=== PATIENT | female | born 1965 | race Caucasian/White ===

== ENCOUNTER 2019-05-11 10:56 | Inpatient (IN) ==
--- NOTE | 2019-04-25 11:34 | PAT Medication Instructions ---
Medication Instructions Date of Service April 25, 2019 Home Medications acetaminophen 650 mg tablet,extended release 650 mg PO UD PRN meloxicam [Mobic] 15 mg PO UD PRN ASK your surgeon for instructions meloxicam [Mobic] 15 mg PO UD PRN Take morning of surgery With a small sip of water, OTHERWISE NOTHING TO EAT OR DRINK AFTER MIDNIGHT: acetaminophen 650 mg tablet,extended release 650 mg PO UD PRN (okay to take up to 4 hours prior to surgery if needed) Take evening before surgery acetaminophen 650 mg tablet,extended release 650 mg PO UD PRN (if needed) Other Notes If you have any questions please call us at [phone] or [phone] or [phone] or [phone]
--- NOTE | 2019-04-26 10:13 | Anesthesiology Consultation ---
Date of Service April 26, 2019 Assessment & Plan (1) Encounter for pre-operative examination: Chart Review Chart Review: Acceptable Risk for Surgery and Patient seen in Pre Admission Testing Teaching & Discussion Instructed NPO after midnight before surgery, except medications with 15 cc of water. Medication instructions provided according to the [facility] guidelines. History Surgery Operation Date: 05/11/19 13:05 Proposed Procedures p L5-S1 Transforaminal Lumbar Interbody Fusion, Spinal Cord Monitoring - Jaylon Whipple DO Height/Weight Height: 6 ft Weight: 108.4 kg Allergies Allergy/AdvReac Type Severity Reaction Status Date / Time adhesive AdvReac Mild Tape - Verified 04/19/19 12:12 skin burning Medications Home Medications Medication Instructions Recorded Confirmed Last Taken acetaminophen 650 mg 650 mg PO UD PRN 02/07/19 04/19/19 Unknown tablet,extended release meloxicam [Mobic] 15 mg PO UD PRN 02/26/19 04/19/19 Unknown Past Medical History Medical History (Updated 04/26/19 @ 15:00 by Jorge Torres) Chronic back pain SPINAL STENOSIS HERNIATED DISC History of headache following lumbar puncture After hysterectomy, required blood patch. MVP (mitral valve prolapse) " TEENAGER," NO INTERVENTION, NO ISSUES, NO MURMUR APPRECIATED ON EXAM AT [facility]. Exercise / Class Metabolic Activity II 4-5 Yardwork/Stairs/Walk up hill Past Family History Family History (Updated 04/19/19 @ 12:17 by Arvind Carson RN) Other Family history of diabetes mellitus in brother Past Surgical History Surgical History Family history of reaction to anesthesia MOM & SISTER - N/V H/O: hysterectomy History of cholecystectomy History of knee replacement LEFT TKA AND THEN REVISION Hx of colonoscopy Hx of esophagogastroduodenoscopy Hx of knee surgery MANIPULATION IN OR X2 PONV (postoperative nausea and vomiting) Past Anesthesia History No Family Hx of Anesthesia Complications (PONV sister and mother) Spinal headache after hyster, required blood patch, but no BRADLEY with TKA or TKA revision. History of PONV History of PONV (not with more recent surgeries) and Hx of Motion Sickness Social History Smoking Status: Never smoker Do You Dip or Chew Tobacco: No Hx Alcohol Use: Yes alcohol intake frequency: holidays/special occasions only Hx Substance Use: No substance use type: does not use Review of Systems Pt denies any recent chest pain, shortness of breath, palpitations, cough, fever or URI. Physical Exam Vital Signs BP: 133/83 P: 70bpm SPO2: 96% RA T: 97.9 F R: 12 ENMT Mouth: + dental restorations (one lower L molar crowned); no chipped teeth and no loose teeth Thyromental Distance: > or= 3.5 Finger Breadths (4) Mallampati Class: II Neck normal visual inspection; neck extension not limited Respiratory normal respiratory effort Auscultation: lungs clear to auscultation bilaterally Cardiovascular Rate/Rhythm: regular rate and regular rhythm Heart Sounds: no murmur Extremities: no edema Testing Laboratory Results 04/26/19 10:27 04/26/19 10:27 PT 10.3 Seconds (9.0-12.0) 04/26/19 10: INR 1.0 (0.9-1.1) 04/26/19 10: APTT 26.0 Seconds (21.0-31.0) 04/26/19 10:27 Urine Color Yellow 04/26/19 10:27 Urine Appearance Clear (Clear) 04/26/19 10:27 Urine pH 5.5 (4.5-7.5) 04/26/19 10:27 Ur Specific [place] 1.019 (1.000-1.030) 04/26/19 10:27 Urine Protein Negative (Negative) 04/26/19 10:27 Urine Glucose (UA) Negative (Negative) 04/26/19 10:27 Urine Ketones Negative (Negative) 04/26/19 10:27 Urine Nitrite Negative (Negative) 04/26/19 10:27 Ur Leukocyte Esterase Negative (Negative) 04/26/19 10:27 Blood Type B Positive 04/26/19 10:27 Antibody Screen NEGATIVE 04/26/19 10:27 Electrocardiogram Date: 03/08/19 Sinus rhythm at 65 bpm with occasional PVCs. Otherwise normal EKG. Compared with EKG of 04/21/2012, PVCs are now present. Chest X-Ray Date: 04/26/19 Findings: + NAD
--- NOTE | 2019-04-26 10:53 | XRay Report ---
XR chest Pre-admission PA/Lat CLINICAL HISTORY: pat preoperative evaluation COMPARISON STUDY: No previous studies for comparison. FINDINGS: The bones soft tissues and hemidiaphragms are normal. The cardiomediastinal silhouette is n ormal. The lungs are clear. The pulmonary vasculature is normal. IMPRESSION: Negative chest. ACT 112: Negative or not required by law. The above report was generated using voice recognition software. It may contain grammatical, syntax or spelling errors. Electronically signed by: Jama Gunn M.D. 04/26/2019 10:52 AM
[2019-04-26 12:16] LABS: Basophils # (auto) 0.05 K/uL (0-0.2); Basophils % (auto) 0.7 %; Eosinophils # (auto) 0.09 K/uL (0-0.5); Eosinophils % (auto) 1.2 %; Hemoglobin 15.6 g/dL (12.0-16.0); Immature Granulocytes # (auto) 0.01 K/uL (0.00-0.02); Immature Granulocytes % (auto) 0.1 %; Lymphocytes # (auto) 1.86 K/uL (1.2-3.4); Lymphocytes % (auto) 25.8 %; Mean Corpuscular Hemoglobin 32.5 pg (25-34); Mean Corpuscular Hgb Conc 35.5 g/dL (32-36); Mean Corpuscular Volume 91.7 fL (80-100); Monocytes # (auto) 0.65 K/uL (0.11-0.59); Neutrophils # (auto) 4.55 K/uL (1.4-6.5); Neutrophils % (auto) 63.2 %; Platelet Count 217 K/uL (130-400); RDW Coefficient of Variation 12.5 % (11.5-14.5); RDW Standard Deviation 42.2 fL (36.4-46.3); White Blood Count 7.21 K/uL (4.8-10.8)
[2019-04-26 12:19] LABS: Appearance Urine Clear (Clear); Bilirubin Urine Negative (Negative); Blood Urine Negative (Negative); Color Urine Yellow; Glucose Urine UA Negative (Negative); Ketones Urine Negative (Negative); Leukocyte Esterase Urine Negative (Negative); Nitrite Urine Negative (Negative); Protein Urine Negative (Negative); Specific Gravity Urine 1.019 (1.000-1.030); Urobilinogen Urine Negative (Negative); pH Urine 5.5 (4.5-7.5)
[2019-04-26 12:30] LABS: Prothrombin Time 10.3 Seconds (9.0-12.0)
[2019-04-26 13:02] LABS: BUN Creatinine Ratio 17.4 (10-20); Calcium 9.3 mg/dl (8.5-10.1); Creatinine Clr Calc Pharmacy 97.4 ml/min; Est GFR (African American) 82.4; Est GFR (Non-African American) 71.1
[~2019-05-11 10:56] MED LIST: ACETAMINOPHEN 500 MG TAB PO SCH; CEFAZOLIN 2000MG 2,000 MG/15 ML SYR IV SCH; CeleBREX 200 MG CAP PO SCH; GABAPENTIN 900 MG DOSE PO SCH; LR 15ML/HR IV SCH
[2019-05-11] MEDS ORDERED: ePHEDrine sulfate 50 MG/ML AMP ONE (11:43)
[2019-05-11] MEDS ORDERED: fentaNYL citrate 100 MCG/2 ML VIAL ONE ×2 (11:43→15:17)
[2019-05-11] MEDS ORDERED: MIDAZOLAM HCL 1 MG/ML 2ML VIAL ONE (11:44)
[2019-05-11] MEDS ORDERED: FLUMAZENIL 0.1 MG/1 ML 10 ML VIAL IV PRN (12:14)
[2019-05-11] MEDS ORDERED: LABETALOL HCL IV 5 MG/ML 20ML IV PRN (12:14)
[2019-05-11] MEDS ORDERED: PROMETHAZINE HCL 12.5 MG in SODIUM CHLORIDE 0.9% 50 ML IV PRN ×2 (12:14→16:45)
[2019-05-11] MEDS ORDERED: ePHEDrine sulfate 50 MG/ML AMP IV PRN (12:14)
[2019-05-11] MEDS ORDERED: ONDANSETRON INJ 2 MG/ML 2 ML VIAL IV PRN ×2 (12:14→16:45)
[2019-05-11] MEDS ORDERED: ATROPINE SULFATE 0.1 MG/ML 10ML SYR IV PRN (12:14)
[2019-05-11] MEDS ORDERED: NALOXONE HCL 0.4 MG/1 ML VIAL/CARP IV PRN ×2 (12:14→16:45)
--- NOTE | 2019-05-11 12:46 | History & Physical Bridge Note ---
Date of Service May 11, 2019 History & Physical Bridge Note I have examined the patient, reviewed the History & Physical and in the interval since the performance of the History & Physical I have noted the following changes of clinical significance: no changes noted
--- NOTE | 2019-05-11 12:47 | History & Physical Report ---
Date of Service May 11, 2019 Assessment & Plan (1) Neurogenic claudication due to lumbar spinal stenosis: L5-S1 transforaminal lumbar interbody fusion Present on Admission?: Yes History of Present Illness Chief Complaint: Back and leg pain Primary Care Provider: Alycia Roldan This is a 53-year-old female who presents with chronic persistent back and leg pain. After failing extensive course of nonoperative care is here for surgical invention. Allergies Allergy/AdvReac Type Severity Reaction Status Date / Time adhesive AdvReac Mild Tape - Verified 05/11/19 11:22 skin burning Home Medications Home Medications Medication Instructions Recorded Confirmed Type acetaminophen 650 mg 650 mg PO UD PRN 02/07/19 05/11/19 History tablet,extended release meloxicam [Mobic] 15 mg PO UD PRN 02/26/19 05/11/19 History Past Med/Surg History Family History (Updated 04/19/19 @ 12:17 by Arvind Carson RN) Other Family history of diabetes mellitus in brother Social History Preferred Language: Burkinan Communication Ability: Effective Valance Cutter Required: No Beliefs That Will Affect Care: None Current Living Situation: Spouse Other Information That Helps Us Care for You: No Feels Safe at Home: Yes Smoking Status: Never smoker Do You Dip or Chew Tobacco: No ; Second Hand Exposure: No ; Hx Alcohol Use: Yes Hx Substance Use: No Physical Exam Physical Exam: Patient is alert and oriented neurologically intact. Results & Data Vital Signs (Past 12 Hours) Vital Signs Temp Pulse Resp BP Pulse Ox 05/11/19 11:36 36.9 C 85 18 168/99 H 98
[2019-05-11] MEDS ORDERED: BUPIVACAINE/EPINEPHRINE 0.5% MPF 1:200,000 10 ML VIAL ONE (13:14)
[2019-05-11] MEDS ORDERED: BACITRACIN INJ 50,000 UNIT VIAL ONE (13:14)
[2019-05-11] MEDS ORDERED: NEOSTIGMINE METHYLSULFATE 1 MG/ML 10ML VIAL ONE (13:52)
[2019-05-11] MEDS ORDERED: PROPOFOL IV EMULSION 10 MG/ML 20 ML VIAL IV ONE (13:52)
[2019-05-11] MEDS ORDERED: LARYING-O-JET KIT (LTA) ONE (13:52)
[2019-05-11] MEDS ORDERED: DEXAMETHASONE SOD INJ 4 MG/ML VIAL ONE (13:52)
[2019-05-11] MEDS ORDERED: LIDOCAINE HCL 2% 2 ML VIAL/AMP(20MG/ML) INFIL ONE (13:52)
[2019-05-11] MEDS ORDERED: ONDANSETRON INJ 2 MG/ML 2 ML VIAL ONE (13:52)
[2019-05-11] MEDS ORDERED: ROCURONIUM BROMIDE 10 MG/ML 5 ML VIAL ONE (13:52)
[2019-05-11] MEDS ORDERED: GLYCOPYRROLATE 0.2 MG/ML VIAL ONE (13:52)
[2019-05-11] MEDS ORDERED: FLOSEAL HEMOSTATIC MATRIX 10ML TOP ONE (14:13)
[2019-05-11] MEDS ORDERED: ePHEDrine sulfate 50 MG/ML SYR ONE (14:13)
--- NOTE | 2019-05-11 14:58 | Operative Report ---
Post Operative Report Pre & Post Diagnosis Operation Date: 05/11/19 13:05 Pre-Op Diagnosis: Lumbar Spinal Stenosis with neurogenic claudication Post-Op Diagnosis: Same I identified the patient and participated in the time-out.: Yes Procedure Operation Date: 05/11/19 13:05 Actual Procedures #1 lumbar decompression with bilateral medial facetectomies foraminotomies L5- S1. #2 posterior spinal fusion L5-S1. #3 placed posterior instrumentation L5- S1. #4 interbody fusion L5-S1. #5 placement of titanium cage 9 x 22 mm at L5- S1. #6 placement locally harvested morselized autograft in the posterior lateral gutters. #7 placement infuse collagen sponge bone mass graft in the posterior lateral gutters and ostial amp and interbody space. Surgeon Jaylon Whipple, Academic Affairs Assistant Kaveh Underwood Estimated Blood Loss 100 Findings Consistent with Post-Op Diagnosis Specimens None Indications This is a 53-year-old female who presents with above-mentioned diagnosis after failing extensive course of nonoperative care is here for the above-mentioned procedure. Description of Procedure Patient was met with identified informed consent obtained. Patient was then taken to the operative suite underwent intubation placed in the prone position the Richy table on top of the Jaguar frame. All bony prominences well-padded eyes inspected to ensure no external pressure placed upon up at this point the lumbar spine is prepped and draped in normal sterile fashion. Sharp dissection with the assistance of Bovie cautery was performed down to and exposing the lamina and transverse processes of L5 and the sacral ala bilaterally. From a caudal to cephalad fashion complete laminectomy of L5 was performed including bilateral medial facetectomies and foraminotomies addressing spinal stenosis. Pedicle screws were then placed in L5 and S1 levels bilaterally with assistance of fluoroscopy and appropriately sized mauricio placed. By way of a transforaminal approach on the right a complete discectomy was performed endplates curetted to subcortical bleeding bone and a 9 x 22 mm titanium cage filled with osteo-bone graft tapped in position. The rods were then locked in final position bilaterally. The transverse processes of L5 and the sacral ala burred to subcortical bleeding bone. Infuse collagen sponge master graft local autograft was placed in the posterior lateral gutters. 15 round [place] drain inserted. The incision was then closed with 1 Vicryl in the fascia 2-0 Vicryl subcutaneously and 4 Monocryl for final skin closure. Steri-Strip sterile dressings placed. Patient will continue PACU stable addition. Please note Kaveh Underwood was present at the entire procedure involved the patient positioning complex portions of the surgery and final skin closure. Lastly spinal cord monitoring was utilized that the procedure no changes noted. I attest to the content of the Intraoperative Record and any orders documented therein. Any exceptions are noted below.
--- NOTE | 2019-05-11 15:22 | Fluoroscopy Report ---
FL lumbar spine 2-3V HISTORY: 53 years-old Female L5-S1 TRANSFORAMINAL LUMBAR INTERBODY COMPARISON: Lumbar spine radiographs 02/07/2019 TECHNIQUE: 3 spot fluoroscopic images of the lumbar spine were obtained utilizing 20.6 seconds fluoro scopy time FINDINGS: Prior laminectomy with discectomy, posterior interbody mauricio and screw fusion at L5-S1. Satisfactory al ignment with multilevel spondylitic spurring and facet arthrosis. IMPRESSION: Fluoroscopic assistance as above. Please see operative report for further details. ACT 112: Negative or not required by law. The above report was generated using voice recognition software. It may contain grammatical, syntax o r spelling errors. Electronically signed by: Prasanna Young M.D. 05/11/2019 3:20 PM
[2019-05-11] MEDS: fentaNYL citrate 100 MCG/2 ML VIAL IV PRN ×3 (15:30→15:40)
[2019-05-11] MEDS: HYDROmorphone INJ 1 MG/ML SYRINGE IV PRN ×8 (15:40→16:15)
[2019-05-11] MEDS ORDERED: KETOROLAC 30 MG/ML VIAL ONE (15:49)
[2019-05-11] MEDS ORDERED: ACETAMINOPHEN 1,000 MG/100 ML VIAL IV STA (15:51)
[2019-05-11] MEDS ORDERED: ACETAMINOPHEN 1000 MG/100 ML IV IV ONE (15:52)
--- NOTE | 2019-05-11 16:18 | Anesthesiology Progress Note ---
Date of Service May 11, 2019 Anesthesia Post Procedure Vital Signs Vital Signs: Temp Pulse Pulse Resp BP BP Pulse Ox 05/11/19 16:10 75 16 138/64 93 05/11/19 16:00 78 16 159/60 H 98 05/11/19 15:50 75 16 162/75 H 99 05/11/19 15:40 73 16 138/96 100 05/11/19 15:30 74 18 135/84 100 05/11/19 15:22 36.4 C L 78 18 159/90 H 100 05/11/19 11:36 36.9 C 85 18 168/99 H 98 Pain Intensity Bilateral Back: Pain Intensity: 5 Transfer of Care Handoff Completed per policy Notes Mental Status: alert / awake / arousable Patient Amnestic to Procedure: Yes Nausea / Vomiting: adequately controlled Pain: adequately controlled Airway Patency, RR, SpO2: stable & adequate BP & HR: stable & adequate Hydration State: stable & adequate Anesthetic Complications: no major complications apparent
[2019-05-11] MEDS ORDERED: FAMOTIDINE 20 MG TAB PO PRN (16:45)
[2019-05-11] MEDS ORDERED: ALUMINUM/MAGNESIUM SUSP 30 ML UDC PO PRN (16:45)
[2019-05-11] MEDS ORDERED: LACTATED RINGER'S 1,000 ML IV SCH (16:45)
[2019-05-11] MEDS ORDERED: bisacodyL 10 MG SUPP PR PRN (16:45)
[2019-05-11] MEDS ORDERED: METOCLOPRAMIDE HCL INJ 5 MG/ML 2 ML VIAL IV PRN (16:45)
[2019-05-11] MEDS ORDERED: ACETAMINOPHEN 1,000 MG/100 ML VIAL IV PRN (16:45)
[2019-05-11] MEDS ORDERED: HYDROmorphone INJ 0.5 MG/0.5 ML SYR IV PRN (16:45)
[2019-05-11] MEDS ORDERED: DO NOT ADMINISTER FLU VACCINE PRN (16:45)
[2019-05-11] MEDS ORDERED: MAGNESIUM HYDROXIDE SUSP 30 ML UDC PO PRN (16:45)
[2019-05-11] MEDS ORDERED: LORazepam 0.5 MG TAB PO PRN (16:45)
[2019-05-11] MEDS ORDERED: HYDROmorphone INJ 1 MG/ML SYRINGE IV PRN (16:45)
[2019-05-11] MEDS ORDERED: TRAMADOL HCL 50 MG TABLET PO PRN (16:45)
[2019-05-11] MEDS ORDERED: ONDANSETRON 4 MG OD TAB PO PRN (16:45)
[2019-05-11] MEDS ORDERED: OXYCODONE HCL IR 5 MG TAB (IMMEDIATE RELEASE) PO PRN (16:45)
[2019-05-11] MEDS ORDERED: DO NOT ADMINISTER PNEUMOCOCCAL VACCINE PRN (16:45)
[2019-05-11] MEDS ORDERED: SOD PHOSPHATE/SOD BIPHOSPHATE ENEMA 132 ML BTL PR PRN (16:45)
[2019-05-11] MEDS ORDERED: LORazepam 0.5 MG/1 ML VIAL IV PRN (16:45)
[2019-05-11] MEDS: KETOROLAC 30 MG/ML VIAL IV SCH (18:05)
[2019-05-11] MEDS: DOCUSATE SODIUM/SENNA 50/8.6MG TAB PO SCH (21:14)
[2019-05-11] MEDS: CEFAZOLIN 2000MG 2,000 MG/15 ML SYR IV SCH (21:14)
[2019-05-12] MEDS: KETOROLAC 30 MG/ML VIAL IV SCH ×3 (00:04→11:54)
[2019-05-12] MEDS: CEFAZOLIN 2000MG 2,000 MG/15 ML SYR IV SCH (05:40)
[2019-05-12] MEDS: POLYETHYLENE (MIRALAX) 17 GM PACK PO SCH ×4 (05:40→23:39)
[2019-05-12 06:56] LABS: Basophils # (auto) 0.01 K/uL (0-0.2); Basophils % (auto) 0.1 %; Eosinophils # (auto) 0.01 K/uL (0-0.5); Eosinophils % (auto) 0.1 %; Hematocrit (blood only) 36.9 % (37-47); Hemoglobin 12.7 g/dL (12.0-16.0); Immature Granulocytes # (auto) 0.02 K/uL (0.00-0.02); Immature Granulocytes % (auto) 0.1 %; Lymphocytes # (auto) 1.24 K/uL (1.2-3.4); Mean Corpuscular Hemoglobin 31.5 pg (25-34); Mean Corpuscular Hgb Conc 34.4 g/dL (32-36); Mean Corpuscular Volume 91.6 fL (80-100); Mean Platelet Volume 10.1 fL (7.4-10.4); Monocytes # (auto) 0.68 K/uL (0.11-0.59); Monocytes % (auto) 4.9 %; Neutrophils % (auto) 85.8 %; Platelet Count 194 K/uL (130-400); RDW Coefficient of Variation 12.1 % (11.5-14.5); RDW Standard Deviation 40.9 fL (36.4-46.3); Red Blood Count 4.03 M/uL (4.2-5.4); White Blood Count 13.76 K/uL (4.8-10.8)
[2019-05-12 07:26] LABS: BUN Creatinine Ratio 14.5 (10-20); Calcium 8.8 mg/dl (8.5-10.1); Creatinine Clr Calc Pharmacy 84.8 ml/min; Est GFR (African American) 69.4; Est GFR (Non-African American) 59.9; Potassium 3.9 mmol/L (3.5-5.1)
[2019-05-12] MEDS: DOCUSATE SODIUM/SENNA 50/8.6MG TAB PO SCH (17:46)
[2019-05-12] MEDS: ACETAMINOPHEN 500 MG TAB PO PRN (21:45)
[2019-05-13] MEDS: POLYETHYLENE (MIRALAX) 17 GM PACK PO SCH ×2 (06:00→12:22)
[2019-05-13] MEDS: ACETAMINOPHEN 500 MG TAB PO PRN ×3 (06:37→22:38)
--- NOTE | 2019-05-13 11:35 | Orthopedic Progress Note ---
Date of Service May 13, 2019 Assessment & Plan (1) Neurogenic claudication due to lumbar spinal stenosis: At this time concerned she is developed a spontaneous CSF leak. We will DC her drain today. Of asked her to maintain bedrest for the next 24 hours. I will reassess her tomorrow. We may initiate more activity tomorrow afternoon pending her response. Present on Admission?: Yes Admission and Anticipated Discharge Date Admission Date: May 11, 2019 Subjective Unfortunately this morning as she was walking the nichole she began experiencing headache. Again she has no significant back or leg pain. Physical Exam Physical Exam: On exam she has excellent strength testing. Results & Data ([facility]) Vital Signs (Past 12 Hours) Vital Signs Temp Pulse Resp BP BP Pulse Ox 05/13/19 07:36 36.6 C 66 16 127/78 96 05/12/19 23:40 36.7 C 68 15 126/79 95
[2019-05-13] MEDS: DOCUSATE SODIUM/SENNA 50/8.6MG TAB PO SCH (18:09)
[2019-05-13 23:44] VITALS: O2SAT 95
--- NOTE | 2019-05-14 07:45 | Anesthesiology Progress Note ---
Date of Service May 14, 2019 Anesthesia Post Procedure Vital Signs Vital Signs: Temp Pulse Resp BP Pulse Ox 05/13/19 23:35 36.7 C 72 16 137/89 95 05/13/19 15:17 36.8 C 77 20 145/84 H 97 Pain Intensity Bilateral Back: Pain Intensity: 0 Head: Pain Intensity: 0 Notes Mental Status: alert / awake / arousable and participated in evaluation Patient Amnestic to Procedure: Yes Nausea / Vomiting: adequately controlled Pain: adequately controlled Airway Patency, RR, SpO2: stable & adequate BP & HR: stable & adequate Hydration State: stable & adequate Anesthetic Complications: no major complications apparent
[2019-05-14 07:53] VITALS: PULSE 80; TEMP 98.8
[2019-05-14] MEDS: ACETAMINOPHEN 500 MG TAB PO PRN (09:13)
[2019-05-14 10:03] VITALS: BP 149/82
--- NOTE | 2019-05-14 12:09 | Discharge Summary ---
Date of Service May 14, 2019 Admission HPI Per Admitting Provider This is a 53-year-old female who presents with chronic persistent back and leg pain. After failing extensive course of nonoperative care is here for surgical invention. Principal Diagnosis Lumbar spinal stenosis with neurogenic claudication Discharge Data Allergies Allergy/AdvReac Type Severity Reaction Status Date / Time adhesive AdvReac Mild Tape - Verified 05/11/19 11:22 skin burning Consultations 05/11/19 16:45 Consult Case Management - Discharge Planning Routine Procedures Performed Operation Date: 05/11/19 13:05 Actual Procedures p L5-S1 Decompression Fusion, Transforaminal Lumbar Interbody Fusion L5-S1, Bone Morphogenetic Protein, Spinal Cord Monitoring - Jaylon Whipple, Ordered Studies 05/11/19 13:05 FL fluoroscopy <1hr Routine [place] lumbar spine 2-3V Routine Hospital Course (1) Neurogenic claudication due to lumbar spinal stenosis: Patient went lumbar decompression fusion troll as well as taken to orthopedic for postoperative postop day 1 she was up and ambulating pain well controlled. Postop day 2 she began experiencing some headaches we did discontinue the drain and had her undergo bed rest. The third day she had complete resolution of symptoms. She is ambulating well. Abdominal wound is working well. Excellent strength testing. Subsequently discharged home. Discharge orders instructions on the chart for further review. Total Time Total Time Spent Total Time Spent (In Minutes): 20 minutes Discharge Plan Discharge Items Patient Disposition: Home - Self-Care Reason For Visit: LUMBAR SPINAL STENOSIS WO NEUROGENIC CLAUDICATION Discharge Diagnosis: Lumbar spinal stenosis with neurogenic claudication Activity: As commented below Non-emergency contact: Primary Care Provider Call non-emergency contact if: you have any medication questions Follow-up/Referrals: Alycia Roldan [Primary Care Provider] - Diet: Regular Addtl Attending Provider Instructions: ACTIVITY RECOMMENDATIONS: SELF CARE INSTRUCTIONS AFTER THORACIC/LUMBAR FUSIONS 1. You may walk to your tolerance. It is good exercise for your legs and back. Expect some back and intermittent leg aches and pains. 2. You may perform "counter-top" level activities (make a sandwich, nestor with a project, etc.). 3. No bending or lifting of more than 10 pounds or back twisting of any nature (roll like a log when turning in bed). 4. You may ride in a car for 20-30 minutes at a time. No driving until after your first visit with your doctor. 5. Frequent changes of position and restricting sitting to 30 minutes at a time will help limit the amount of back spasms and stiffness you may experience. 6. You may discontinue the use of ambulatory aids (cane, crutches, etc.) once your strength and confidence allow. 7. You may product safety and standards engineer the shower and let water strike your incision when you arrive home at least once daily. Do not take a tub bath, sit in a hot tub or go into a swimming pool until after your first recheck in the office. SPECIAL CARE INSTRUCTIONS: VERY IMPORTANT TO READ AND REVIEW A. Your surgical incision has been closed with a cosmetic suture under the skin that will dissolve in about 6 weeks. In 14 days, you can use a pair of clean scissors and cut the suture that is left outside of the skin at the ends of your incision. 1. The small skin tapes can be removed 7 days after surgery if they have not fallen off by that point. 2. You may keep the wound open to air as much as possible to promote healing after post-op day number 5 unless told otherwise by your doctor. 3. If you think the wound looks like it is becoming infected (redness or worsening drainage) and/or you are experiencing fever, chill or worsening back pain and muscle spasms, contact the office so that we may evaluate you as soon as possible. B. Complications are uncommon, but please contact us if you have any signs or symptoms of: 1. wound infection (fever higher than 102.5 degrees F, redness, separation of wound, drainage, or increasing pain from the incision) 2. blood clots in legs (pain, swelling, redness and warmth in legs) 3. urinary tract infection (fever higher than 102.5 degrees F, burning upon urination or increased frequency of urination) 4. nerve problems (inability to walk on your toes or heels, numbness, loss of bowel or bladder control) 5. any other symptoms that concern you C. Please call the office at if you have any concerns or questions about your operation or recovery. D. No smoking! Smoking drastically decreases the chance of a solid fusion. E. Do not take any anti-inflammatory medications (Indocin, Advil, Motrin, Aspirin, Naprosyn, etc.) as these may inhibit the chance of a solid fusion. Tylenol is okay to take for pain. MANAGING PAIN AFTER SPINAL SURGERY 1. Narcotic medication is intended for short-term use and will be provided for surgical pain. Surgical pain usually lasts for a period of 4-6 weeks. Narcotic medication includes Percocet, Vicodin, Darvocet, Tylenol #3 or Lortab. 2. Longer-term pain is more appropriately treated with non-narcotic medication such as Tylenol ES. 3. Muscle spasm is not appropriately treated with narcotics. Muscle relaxers such as Soma, Flexeril or Skelaxin can be used along with Tylenol ES. 4. Remember that we all live with some "aches and pains". This is not unusual or uncommon after an injury or as we get older. a. Back pain is expected and may include muscle spasms for 4 to 6 weeks after surgery. The pain should gradually improve. If the pain worsens for no apparent reason, please contact the office. b. Intermittent leg pain may also be experienced and should not be concerned about unless it worsens for no apparent reason. If so, please contact the office. 5. We will provide appropriate medication within the normal guidelines of their prescribed use. We will also be very cautious and aware of potential abuse and extended duration of patients' medication needs. a. Pain medications are for your comfort and to assist with sleep and rest so that the tissue can heal. They are not provided in order to return to normal activity and should not be used through the day. To do so or worsening pain at night can result from ongoing tissue damage and development of tolerance to the prescribed medicine. 6. Please allow 2-3 days to process refills. Prescriptions will not be mailed but must be picked up at the office. FOLLOW UP VISIT: Keep your scheduled follow-up appointment. Any questions, please call the office at . Pending Studies at Discharge: No Stand-Alone Forms: My [facility] Poptent, Opioid Pain Management, Smoking Cessation Medications and DC Order Prescriptions: New tramadol 50 mg tablet 50 mg PO Q6H PRN (Reason: pain, moderate) Qty: 30 RF: 0 oxycodone 5 mg tablet 5 mg PO Q6H PRN (Reason: pain, severe) Qty: 30 RF: 0 Continued acetaminophen [Tylenol Arthritis Pain] 650 mg tablet extended release 650 mg PO UD PRN (Reason: Pain) RF: 0 Discontinued meloxicam [Mobic] 7.5 mg Tablet 15 mg PO UD PRN (Reason: Pain) RF: 0 Discharge Orders: Discharge Order (Routine); Ordered 05/14/19 Ordered By: Jaylon Whipple Admission Data Admit Date/Time: 05/11/19 15:33 Attending Provider: Jyalon Whipple Admit Provider: Jaylon Whipple Primary Care Provider: Alycia Roldan Other Interventions: Discharge Summary Assessment (RN) Last Done: 05/14/19 09:52 DC Date/Time DO NOT enter until pt leaves facility: 05/14/19 11:37
== END 2019-05-14 11:37 | disposition home or self-care (01) | DRG 455 ==
LOC: ASU 10:56 → 3E 15:33

== ENCOUNTER 2022-01-19 08:19 | Inpatient (IN) ==
--- NOTE | 2021-12-29 10:19 | PAT Medication Instructions ---
Medication Instructions Date of Service December 29, 2021 Home Medications acetaminophen 650 mg tablet,extended release (Tylenol Arthritis Pain) 650 mg PO UD PRN Pain diphenhydramine 25 mg-acetaminophen 500 mg tablet (Tylenol PM Extra Strength) 1 tab PO HS PRN Sleep hydrochlorothiazide 25 mg tablet 25 mg PO QAM trazodone 50 mg tablet 100 mg PO HS DO NOT take the morning of surgery hydrochlorothiazide 25 mg tablet 25 mg PO QAM Take morning of surgery With a small sip of water, OTHERWISE NOTHING TO EAT OR DRINK AFTER MIDNIGHT: acetaminophen 650 mg tablet,extended release (Tylenol Arthritis Pain) 650 mg PO UD PRN Pain (if needed) Take evening before surgery acetaminophen 650 mg tablet,extended release (Tylenol Arthritis Pain) 650 mg PO UD PRN Pain (if needed) diphenhydramine 25 mg-acetaminophen 500 mg tablet (Tylenol PM Extra Strength) 1 tab PO HS PRN Sleep (if needed) trazodone 50 mg tablet 100 mg PO HS Other Notes If you have any questions please call us at [phone] or [phone] or [phone] or [phone]
--- NOTE | 2021-12-31 10:59 | Anesthesiology Consultation ---
Date of Service December 31, 2021 Assessment & Plan (1) Encounter for pre-operative examination: Chart Review Chart Review: Acceptable Risk for Surgery and Patient seen in Pre Admission Testing Teaching & Discussion Pre-Anesthesia Teaching/Discussion Notes: Instructed NPO after midnight before surgery, except medications with 15 cc of water. Medication instructions provided according to the [facility] guidelines. History Surgery Operation Date: 01/19/22 07:45 Proposed Procedures p L4-L5 Decompression and Fusion, L5-S1 Hardware Removal - Jaylon Whipple DO Height/Weight Height: 6 ft Weight: 97.522 kg Allergies Allergy/AdvReac Type Severity Reaction Status Date / Time adhesive AdvReac Mild Tape - Verified 12/25/21 11:23 skin burning Medications Home Medications Medication Instructions Recorded Confirmed Last Taken acetaminophen 650 mg 650 mg PO UD PRN Pain 02/07/19 12/25/21 10/23/19 tablet,extended release (Tylenol Arthritis Pain) diphenhydramine 25 1 tab PO HS PRN Sleep 12/25/21 12/25/21 Unknown mg-acetaminophen 500 mg tablet (Tylenol PM Extra Strength) hydrochlorothiazide 25 mg tablet 25 mg PO QAM 12/25/21 12/25/21 Unknown trazodone 50 mg tablet 100 mg PO HS 12/25/21 12/25/21 Unknown Past Medical History Medical History (Updated 12/31/21 @ 11:12 by Tamar Kiser PA-C) Chronic back pain DDD (degenerative disc disease) GERD (gastroesophageal reflux disease) controlled, stable per pt History of anesthesia reaction slow to wake, PONV not requiring scop patch History of headache following lumbar puncture After hysterectomy, required blood patch. HTN (hypertension) controlled, stable per pt MVP (mitral valve prolapse) " TEENAGER," NO INTERVENTION, NO ISSUES, NO MURMUR APPRECIATED ON EXAM AT [facility]. Spinal stenosis Patient denies h/o stroke, seizures, heart attack, heart failure, DM, blood clots or blood transfusions. Exercise / Class Metabolic Activity II 4-5 Yardwork/Stairs/Walk up hill (denies CP or SOB with 1 FOS) Past Family History Family History Other Family history of diabetes mellitus in brother Past Surgical History Surgical History (Updated 12/31/21 @ 15:05 by aTmar Kiser PA-C) Family history of reaction to anesthesia MOM & SISTER - N/V H/O: hysterectomy History of cholecystectomy History of knee replacement LEFT TKA AND THEN REVISION History of spinal fusion 05/11/2019 [facility]: Grade 1 view, MAC 3, ETT 7.5. Hx of colonoscopy Hx of esophagogastroduodenoscopy Hx of knee surgery MANIPULATION IN OR X2 PONV (postoperative nausea and vomiting) denies needing scop patch S/P transposition of nerve left ulnar Past Anesthesia History Other (slow to wake, blood patch after neuraxial anesthesia without issues with subsequent TKA and revision; mother and sister with PONV) History of PONV History of PONV (denies needing scop patch) and Hx of Motion Sickness Social History Smoking Status: Never smoker Do You Dip or Chew Tobacco: No Hx Alcohol Use: Yes alcohol intake frequency: holidays/special occasions only Hx Substance Use: No substance use type: does not use Review of Systems Patient denies chest pain, shortness of breath, dyspnea on exertion, snoring, witnessed apneas, fever, chills, cough, wheezing, or palpitations. Physical Exam Vital Signs Vitals BP 133/90 P 82 TEMP 98.3 SP02 96% on RA RESP 18 Physical Full cervical extension range of motion without pain TMD 3.5 finger breadths Mallampati Score 3 Dentition: intact, denies chipped or loose teeth, caps/crowns, implants or bridges Lungs: normal respiratory effort. Clear throughout to auscultation, no adventitious breath sounds Cardiac: regular rate and rhythm, no murmurs noted Carotid arteries: negative bruit bilat Lab Results Anesthesia Preop Results Results Anesthesia Widget: WBC 5.38 K/ul (4.8-10.8) 12/31/21 Hgb 15.6 g/dl (12.0-16.0) 12/31/21 Hct 42.4 % (34.1-44.9) 12/31/21 Plt 213 K/uL (130-400) 12/31/21 Na 138 mmol/L (136-145) 12/31/21 K 3.9 mmol/L (3.5-5.1) 12/31/21 Cl 102 mmol/L (98-107) 12/31/21 CO2 30 mmol/L (21-32) 12/31/21 BUN 20 mg/dl (6-23) 12/31/21 Creat 0.97 mg/dl (0.6-1.2) 12/31/21 Glucose Level 128 mg/dl (70-99(Fasting)) H 12/31/21 PT 10.9 Seconds (9.0-12.0) 12/31/21 PTT 25.8 Seconds (21.0-31.0) 12/31/21 INR 1.0 (0.9-1.1) 12/31/21 Urine Color Yellow 12/31/21 Urine Appearance Clear (Clear) 12/31/21 Urine pH 6.0 (4.5-7.5) 12/31/21 Urine Specific [place] 1.020 (1.000-1.030) 12/31/21 Urine Protein Negative (Negative) 12/31/21 Urine Glucose (UA) Negative (Negative) 12/31/21 Urine Ketones Negative (Negative) 12/31/21 Urine Blood Negative (Negative) 12/31/21 Urine Nitrite Negative (Negative) 12/31/21 Urine Bilirubin Negative (Negative) 12/31/21 Urine Urobilinogen Negative (Negative) 12/31/21 Urine Leukocyte Esterase Negative (Negative) 12/31/21 Blood Type B Positive 12/31/21 Antibody Screen NEGATIVE 12/31/21 Testing Electrocardiogram Date: 12/31/21 Sinus rhythm with occasional PVCs, rate 69 bpm Chest X-Ray Date: 12/31/21 The lungs are clear. Cardiac silhouette is normal in size. No pleural effusions. No pneumothorax. Prior cholecystectomy. Moderate degenerative changes within the thoracic spine. There are low lung volumes. IMPRESSION: No acute process. Other Testing Neck CTA 10/23/19 No evidence of hemodynamically significant carotid or vertebral artery stenosis. No evidence of dissection. COVID-19 Risk Screen Screening Information COVID-19 Screen Date: 12/31/21 Exposure 21 Days Family/Household +COVID Last 21 Days: No Exposure 10 Days Any COVID Exposure Last 10 Days: No Symptoms Last 10 Days Experienced COVID Sx Last 10 Days: No + COVID 0-90 Days COVID + in Last 0-90 Days: No
[~2022-01-19 08:19] MED LIST changes: -CEFAZOLIN 2000MG 2,000 MG/15 ML SYR IV SCH; +GABAPENTIN 600 MG DOSE PO SCH; -GABAPENTIN 900 MG DOSE PO SCH; +ceFAZolin 2000MG 2,000 MG/15 ML SYR IV SCH
[2022-01-19] MEDS ORDERED: LIDOCAINE 2% 20 MG/ML 5 ML SYR IV ONE (08:30)
[2022-01-19] MEDS ORDERED: fentaNYL citrate 100 MCG/2 ML VIAL ONE (08:30)
[2022-01-19] MEDS ORDERED: MIDAZOLAM HCL 1 MG/ML 2ML VIAL ONE (08:30)
[2022-01-19] MEDS ORDERED: ROCURONIUM BROMIDE 10 MG/ML 5 ML VIAL IV ONE (08:30)
[2022-01-19] MEDS ORDERED: PROPOFOL IV EMULSION 10 MG/ML 20 ML VIAL IV ONE (08:30)
--- NOTE | 2022-01-19 09:07 | History & Physical Bridge Note ---
Date of Service January 19, 2022 History & Physical Bridge Note I have examined the patient, reviewed the History & Physical and in the interval since the performance of the History & Physical I have noted the following changes of clinical significance: no changes noted
--- NOTE | 2022-01-19 09:08 | History & Physical Report ---
Date of Service January 19, 2022 Assessment & Plan (1) Lumbar spinal stenosis: Plan: L4-5 decompression and fusion, L5-S1 hardware removal History of Present Illness Chief Complaint: Back and leg pain Primary Care Provider: Sandi Carty DO This is a 56-year-old female who presents with chronic persistent back and leg pain. Failing course of nonoperative care she is here for surgical invention. Allergies Allergy/AdvReac Type Severity Reaction Status Date / Time adhesive AdvReac Mild Tape - Verified 01/19/22 08:29 skin burning Home Medications Medication Instructions Recorded Confirmed Type acetaminophen 650 mg 650 mg PO UD PRN Pain 02/07/19 01/19/22 History tablet,extended release (Tylenol Arthritis Pain) diphenhydramine 25 1 tab PO HS PRN Sleep 12/25/21 01/19/22 History mg-acetaminophen 500 mg tablet (Tylenol PM Extra Strength) hydrochlorothiazide 25 mg tablet 25 mg PO QAM 12/25/21 01/19/22 History trazodone 50 mg tablet 100 mg PO HS 12/25/21 01/19/22 History Past Med/Surg History Medical History Chronic back pain DDD (degenerative disc disease) GERD (gastroesophageal reflux disease) controlled, stable per pt History of anesthesia reaction slow to wake, PONV not requiring scop patch History of headache following lumbar puncture After hysterectomy, required blood patch. HTN (hypertension) controlled, stable per pt MVP (mitral valve prolapse) " TEENAGER," NO INTERVENTION, NO ISSUES, NO MURMUR APPRECIATED ON EXAM AT PAT. Obesity Spinal stenosis Surgical History Family history of reaction to anesthesia MOM & SISTER - N/V H/O: hysterectomy History of cholecystectomy History of knee replacement LEFT TKA AND THEN REVISION History of spinal fusion 05/11/2019 [facility]: Grade 1 view, MAC 3, ETT 7.5. Hx of colonoscopy Hx of esophagogastroduodenoscopy Hx of knee surgery MANIPULATION IN OR X2 PONV (postoperative nausea and vomiting) denies needing scop patch S/P transposition of nerve left ulnar Family History Other Family history of diabetes mellitus in brother Social History Smoking Status: Never smoker Second Hand Exposure: No; Do You Dip or Chew Tobacco: No; Hx Alcohol Use: Yes Hx Substance Use: No Preferred Language: Khmer Communication Ability: Effective Shirt Finisher Required: No Beliefs That Will Affect Care: None Current Living Situation: Spouse Feels Safe at Home: Yes Safety Concerns: Feels Safe At This Time Assistive Devices: Glasses Physical Exam Physical Exam: Patient is alert and oriented Heart regular rhythm Lungs clear Results & Data Results & Data ([facility]) Vital Signs (Past 12 Hours) Vital Signs Temp Pulse Resp BP Pulse Ox O2 Del Method 01/19/22 08:40 36.6 C 80 18 165/100 H 98 Room Air
[2022-01-19] MEDS ORDERED: ceFAZolin 330 MG/ML 1 GM VIAL ONE (09:13)
[2022-01-19] MEDS ORDERED: BUPIVACAINE/EPINEPHRINE 0.25% 1:200,000 30 ML VIAL ONE (09:13)
[2022-01-19] MEDS ORDERED: SCOPOLAMINE 1 MG TDSY TD ONE (09:20)
[2022-01-19] MEDS ORDERED: FAMOTIDINE/PF 20 MG/2 ML VIAL IV ONE (09:23)
[2022-01-19] MEDS ORDERED: ePHEDrine sulfate 50 MG/ML AMP IV PRN (09:25)
[2022-01-19] MEDS ORDERED: ATROPINE SULFATE 0.1 MG/ML 10ML SYR IV PRN (09:25)
[2022-01-19] MEDS ORDERED: ONDANSETRON INJ 2 MG/ML 2 ML VIAL IV PRN ×2 (09:25→13:10)
[2022-01-19] MEDS ORDERED: HYDROmorphone INJ 1 MG/ML SYRINGE IV PRN ×2 (09:25→13:10)
[2022-01-19] MEDS ORDERED: KETAMINE 50 MG/5 ML SYRINGE ONE (09:54)
[2022-01-19] MEDS ORDERED: NEOSTIGMINE METHYLSULFATE 1 MG/ML 10ML VIAL ONE (10:15)
[2022-01-19] MEDS ORDERED: ONDANSETRON INJ 2 MG/ML 2 ML VIAL ONE (10:15)
[2022-01-19] MEDS ORDERED: GLYCOPYRROLATE 0.2 MG/ML VIAL ONE (10:15)
[2022-01-19] MEDS ORDERED: HYDROmorphone INJ 2 MG/ML SYR/VIAL ONE (11:23)
--- NOTE | 2022-01-19 11:30 | Operative Report ---
Post Operative Report Pre & Post Diagnosis Operation Date: 01/19/22 09:55 Pre-Op Diagnosis: Spondylolisthesis, Lumbar Region Spinal stenosis with neurogenic claudication Post-Op Diagnosis: Same I identified the patient and participated in the time-out.: Yes Procedure Operation Date: 01/19/22 09:55 Actual Procedures #1 removal of posterior instrumentation L5-S1. #2 exploration of fusion L5-S1. #3 lumbar decompression bilateral medial facetectomies and foraminotomies L3-L4 L4-L5. #4 posterior spinal fusion L4-5. #5 placement posterior instrumentation L4-5 per #6 interbody fusion L4-5. #7 placement of Spira 15 x 26 mm cage at L4- L5. #8 placement locally harvested morselized autograft in the posterior gutters. #9 placement of I factor model V toss interbody space and posterior gutters. Surgeon Jaylon Whipple, Regeneration Operator Teresita Irving Estimated Blood Loss 250 Findings See Below Patient is 6 feet tall weighing over 107 kg with a BMI in excess of 32. Patient's body habitus did contribute to significant technical difficulty required deepest retractors and longer instruments noted to perform her procedure. This at least 50% increased operative time. Specimens None Indications This is a 56-year-old female known to me the presents with above-mentioned diagnosis after failing course of nonoperative care is here for the above- mentioned procedure. Description of Procedure Patient was met with identified informed consent obtained. Patient was then taken to the operative suite underwent intubation placed in the prone position the Richy table top of the Jaguar frame. All bony prominences well-padded eyes inspected to ensure no external pressure placed upon the. This point the lumbar spine was prepped and draped in normal sterile fashion. Sharp dissection with the assistance of Bovie cautery was performed down to and exposing the lamina and transverse processes of L4 and instrumentation at L5-S1 bilaterally. Then proceeded move the hardware bilaterally explore the fusion mass noted to be mature and intact at L5-S1. Then performed a complete laminectomy L4 partial laminectomy of L3 including bilateral medial facetectomies and foraminotomies addressing severe spinal stenosis. Pedicle screws then placed at L4-5 bilate rally with assistance of fluoroscopy and appropriately sized mauricio placed. By way of entrance foraminal approach on the right a complete discectomy of L for L5 was performed endplates curetted to subcortical any bone and a 15 x 26 mm spiral cage with I factor tapped in position. The rods were then compressed locked in final position bilaterally. The transverse processes of L4-5 burred to subcorti gustavo bleeding bone. I factor model V toss and locally harvested morselized autograft was placed in the posterior gutters. 15 round [place] drain inserted. The incision was then closed with 1 Vicryl in the fascia 2-0 Vicryl subcutaneously and 4 Monocryl for final skin closure. Steri-Strip sterile dressings placed. Patient waken taken to PACU in stable condition. Please note spinal cord monitoring was utilized at the procedure no changes noted and lastly Teresita Irving was present at the entire procedure and while the patient positioning complex portions of the surgery and final skin closure. I attest to the content of the Intraoperative Record and any orders documented therein. Any exceptions are noted below.
[2022-01-19] MEDS: fentaNYL citrate 100 MCG/2 ML VIAL IV PRN ×2 (12:04→12:10)
--- NOTE | 2022-01-19 13:08 | Anesthesiology Progress Note ---
Date of Service January 19, 2022 Anesthesia Post Procedure Vital Signs Vital Signs: Temp Pulse Pulse Resp BP Pulse Ox O2 Del Method 01/19/22 12:35 36.4 C L 61 12 126/73 98 Room Air 01/19/22 12:25 83 12 135/98 100 Room Air 01/19/22 12:15 73 12 157/93 H 100 Oxymask 01/19/22 12:05 80 13 159/98 H 98 Oxymask 01/19/22 11:55 65 12 132/89 100 Oxymask 01/19/22 11:45 36.0 C L 87 16 147/96 H 99 Oxymask 01/19/22 08:40 36.6 C 80 18 165/100 H 98 Room Air O2 Flow Rate 01/19/22 12:35 01/19/22 12:25 01/19/22 12:15 3 01/19/22 12:05 5 01/19/22 11:55 9 01/19/22 11:45 9 01/19/22 08:40 Pain Intensity Back: Pain Intensity: 4 Transfer of Care Handoff Completed per policy Notes Mental Status: alert / awake / arousable and participated in evaluation Patient Amnestic to Procedure: Yes Nausea / Vomiting: adequately controlled Pain: adequately controlled Airway Patency, RR, SpO2: stable & adequate BP & HR: stable & adequate Hydration State: stable & adequate Anesthetic Complications: no major complications apparent
[2022-01-19] MEDS ORDERED: hydrOXYzine HCl 25 MG TAB PO PRN (13:10)
[2022-01-19] MEDS ORDERED: LORazepam 0.5 MG in SYRINGE 0 ML IV PRN (13:10)
[2022-01-19] MEDS ORDERED: PROMETHAZINE HCL 12.5 MG in SODIUM CHLORIDE 0.9% 50 ML IV PRN (13:10)
[2022-01-19] MEDS ORDERED: diphenhydrAMINE Capsule 25 MG CAP PO PRN (13:10)
[2022-01-19] MEDS ORDERED: HYDROmorphone INJ 0.5 MG/0.5 ML SYR IV PRN (13:10)
[2022-01-19] MEDS ORDERED: ALUMINUM/MAGNESIUM SUSP 30 ML UDC PO PRN (13:10)
[2022-01-19] MEDS ORDERED: METOCLOPRAMIDE HCL INJ 5 MG/ML 2 ML VIAL IV PRN (13:10)
[2022-01-19] MEDS ORDERED: NALOXONE HCL 0.4 MG/1 ML VIAL/CARP IV PRN (13:10)
[2022-01-19] MEDS ORDERED: oxyCODONE HCL IR 5 MG TAB (IMMEDIATE RELEASE) PO PRN (13:10)
[2022-01-19] MEDS ORDERED: FAMOTIDINE 20 MG TAB PO PRN (13:10)
[2022-01-19] MEDS ORDERED: MAGNESIUM HYDROXIDE SUSP 30 ML UDC PO PRN (13:10)
[2022-01-19] MEDS ORDERED: bisacodyL 10 MG SUPP PR PRN (13:10)
[2022-01-19] MEDS ORDERED: ONDANSETRON 4 MG OD TAB PO PRN (13:10)
[2022-01-19] MEDS ORDERED: ACETAMINOPHEN 1,000 MG/100 ML VIAL IV PRN (13:10)
[2022-01-19] MEDS ORDERED: SOD PHOSPHATE/SOD BIPHOSPHATE ENEMA 132 ML BTL PR PRN (13:10)
[2022-01-19] MEDS ORDERED: LORazepam 0.5 MG TAB PO PRN (13:10)
[2022-01-19] MEDS ORDERED: ACETAMINOPHEN 500 MG TAB PO PRN (13:10)
[2022-01-19] MEDS: LACTATED RINGER'S 1,000 ML IV SCH ×2 (13:14→19:32)
--- NOTE | 2022-01-19 13:15 | Fluoroscopy Report ---
FL lumbar spine 2-3V CLINICAL HISTORY: L4-L5 DECOMP AND FUSION, L5-S1 HARDWARE REMOVAL TECHNIQUE: 3 views were obtained with the C-arm in the OR with the above procedure. Total fluoroscopy time was 12 seconds. Comparison: Comparison is made to lumbar spine radiograph 04/10/2018 FINDINGS/IMPRESSION: Intraoperative images were obtained of L4-L5 decompression and fusion and hardwa re replacement. Please correlate with intraoperative fluoroscopy and operative report. ACT 112: Negative or not required by law. Electronically signed by: Deep Oakley M.D. 01/19/2022 1:14 PM
[2022-01-19] MEDS: ceFAZolin 2000MG 2,000 MG/15 ML SYR IV SCH (17:17)
[2022-01-19] MEDS: DOCUSATE SODIUM/SENNA 50/8.6MG TAB PO SCH (20:43)
[2022-01-19] MEDS: traZODone HCL 100 MG TAB PO SCH (20:43)
[2022-01-20] MEDS: ceFAZolin 2000MG 2,000 MG/15 ML SYR IV SCH (02:01)
[2022-01-20] MEDS: LACTATED RINGER'S 1,000 ML IV SCH (02:01)
[2022-01-20] MEDS: POLYETHYLENE (MIRALAX) 17 GM PACK PO SCH ×4 (05:56→23:06)
[2022-01-20] MEDS: traMADol HCL 50 MG TABLET PO PRN ×2 (06:06→21:44)
[2022-01-20 07:24] LABS: Basophils # (auto) 0.05 K/uL (0-0.2); Basophils % (auto) 0.5 %; Eosinophils # (auto) 0.04 K/uL (0-0.50); Eosinophils % (auto) 0.4 %; Hematocrit (blood only) 35.2 % (34.1-44.9); Hemoglobin 12.7 g/dl (12.0-16.0); Immature Granulocytes # (auto) 0.04 K/uL (0.00-0.02); Immature Granulocytes % (auto) 0.4 %; Lymphocytes # (auto) 2.15 K/uL (1.2-3.4); Lymphocytes % (auto) 19.5 %; Mean Corpuscular Hemoglobin 33.1 pg (25.0-34.0); Mean Corpuscular Hgb Conc 36.1 g/dL (32.0-36.0); Mean Corpuscular Volume 91.7 fL (80.0-100.0); Mean Platelet Volume 9.5 fL (9.4-12.3); Monocytes # (auto) 0.71 K/uL (0.24-0.82); Monocytes % (auto) 6.4 %; Neutrophils # (auto) 8.02 K/uL (1.4-6.5); Neutrophils % (auto) 72.8 %; Platelet Count 188 K/uL (130-400); RDW Coefficient of Variation 11.8 % (11.5-14.5); RDW Standard Deviation 39.5 fL (36.4-46.3); Red Blood Count 3.84 M/uL (3.93-5.22); White Blood Count 11.01 K/ul (4.8-10.8)
[2022-01-20 07:43] LABS: Calcium 8.9 mg/dl (8.5-10.1); Creatinine Clr Calc Pharmacy 86.3 ml/min; Est GFR (African American) 72.9 ml/min; Est GFR (Non-African American) 62.9 ml/min; Potassium 3.5 mmol/L (3.5-5.1)
[2022-01-20] MEDS: hydroCHLOROthiazide 25 MG TAB PO SCH (08:31)
[2022-01-20] MEDS: dexAMETHasone 6 MG in SYRINGE 0 ML IV SCH (08:31)
--- NOTE | 2022-01-20 09:01 | Orthopedic Progress Note ---
Date of Service January 20, 2022 Assessment & Plan (1) Lumbar spinal stenosis: Plan: Osiris is postop day 1 status post hard removal L5-S1, TLIF L4-5. She is doing great. We will start physical therapy today. Maintain DALLAS drain. DVT prophylaxis is in the form of teds and SCDs. Continue with pain control. Anticipate discharge home within the next 24 to 48 hours. Admission and Anticipated Discharge Date Admission Date: January 19, 2022 Subjective States he is postop day 1 status post hard removal L5-S1, TLIF L4-5. She is doing well. Right leg pain has resolved that she had preoperatively. H&H are 12.7 and 35.2 respectively. DALLAS drain output last shift was 80 cc. Otherwise she had an uneventful evening. Review of Systems Review of Systems: All systems reviewed & are unremarkable except as noted in HPI & below Physical Exam Physical Exam: She sitting in a chair in no acute distress Alert and oriented x3 Lumbar dressing is clean dry intact with functioning D[place] drain Calf soft nontender bilaterally Results & Data ([facility]) Vital Signs (Past 12 Hours) Vital Signs Temp Pulse Resp BP Pulse Ox O2 Del Method 01/20/22 07:33 37.0 C 76 17 122/80 94 Room Air 01/20/22 04:00 36.5 C 68 16 124/69 97 Room Air 01/20/22 00:00 36.9 C 72 16 109/69 97 Room Air
[2022-01-20] MEDS: DOCUSATE SODIUM/SENNA 50/8.6MG TAB PO SCH (21:41)
[2022-01-20] MEDS: traZODone HCL 100 MG TAB PO SCH (21:42)
[2022-01-21] MEDS: POLYETHYLENE (MIRALAX) 17 GM PACK PO SCH (05:46)
--- NOTE | 2022-01-21 08:21 | Discharge Summary ---
Date of Service January 21, 2022 Admission HPI Per Admitting Provider This is a 56-year-old female who presents with chronic persistent back and leg pain. Failing course of nonoperative care she is here for surgical invention. Principal Diagnosis Lumbar spinal stenosis with neurogenic claudication with spondylolisthesis L4-5 Discharge Data Allergies Allergy/AdvReac Type Severity Reaction Status Date / Time adhesive AdvReac Mild Tape - Verified 01/19/22 08:29 skin burning Procedures Performed Operation Date: 01/19/22 09:55 Actual Procedures p L4-L5 Decompression and Fusion, L5-S1 Hardware Removal(Not Applicable) - Jaylon Whipple DO Ordered Studies 01/19/22 07:00 [place] lumbar spine 2-3V Routine Hospital Course (1) Neurogenic claudication due to lumbar spinal stenosis: Patient underwent lumbar decompression fusion tolerated this well was taken to orthopedic for postoperative postop and when she was up and ambulating pr ogressed to postop day #2. Pain well controlled. DALLAS drain decreasing probably. EXTR strength testing. Socially discharged home per discharge orders and instructions found in the chart for further review. Total Time Total Time Spent Total Time Spent (In Minutes): 20 minutes Discharge Plan Discharge Items Patient Disposition: Home - Self-Care Reason For Visit: Spondylolisthesis, Lumbar Region Discharge Diagnosis: Lumbar spinal stenosis with neurogenic claudication Activity: As commented below Non-emergency contact: Primary Care Provider Call non-emergency contact if: you have any medication questions Follow-up/Referrals: Sandi Carty DO [Primary Care Provider] - Diet: Regular Addtl Attending Provider Instructions: ACTIVITY RECOMMENDATIONS: SELF CARE INSTRUCTIONS AFTER THORACIC/LUMBAR FUSIONS 1. You may walk to your tolerance. It is good exercise for your legs and back. Expect some back and intermittent leg aches and pains. 2. You may perform "counter-top" level activities (make a sandwich, nestor with a project, etc.). 3. No bending or lifting of more than 10 pounds or back twisting of any nature (roll like a log when turning in bed). 4. You may ride in a car for 20-30 minutes at a time. No driving until after your first visit with your doctor. 5. Frequent changes of position and restricting sitting to 30 minutes at a time will help limit the amount of back spasms and stiffness you may experience. 6. You may discontinue the use of ambulatory aids (cane, crutches, etc.) once your strength and confidence allow. 7. You may marketing producer the shower and let water strike your incision when you arrive home at least once daily. Do not take a tub bath, sit in a hot tub or go into a swimming pool until after your first recheck in the office. SPECIAL CARE INSTRUCTIONS: VERY IMPORTANT TO READ AND REVIEW A. Your surgical incision has been closed with a cosmetic suture under the skin that will dissolve in about 6 weeks. In 14 days, you can use a pair of clean scissors and cut the suture that is left outside of the skin at the ends of your incision. 1. The small skin tapes can be removed 7 days after surgery if they have not fallen off by that point. 2. You may keep the wound open to air as much as possible to promote healing after post-op day number 5 unless told otherwise by your doctor. 3. If you think the wound looks like it is becoming infected (redness or worsening drainage) and/or you are experiencing fever, chill or worsening back pain and muscle spasms, contact the office so that we may evaluate you as soon as possible. B. Complications are uncommon, but please contact us if you have any signs or symptoms of: 1. wound infection (fever higher than 102.5 degrees F, redness, separation of wound, drainage, or increasing pain from the incision) 2. blood clots in legs (pain, swelling, redness and warmth in legs) 3. urinary tract infection (fever higher than 102.5 degrees F, burning upon urination or increased frequency of urination) 4. nerve problems (inability to walk on your toes or heels, numbness, loss of bowel or bladder control) 5. any other symptoms that concern you C. Please call the office at if you have any concerns or questions about your operation or recovery. D. No smoking! Smoking drastically decreases the chance of a solid fusion. E. Do not take any anti-inflammatory medications (Indocin, Advil, Motrin, Aspirin, Naprosyn, etc.) as these may inhibit the chance of a solid fusion. Tylenol is okay to take for pain. MANAGING PAIN AFTER SPINAL SURGERY 1. Narcotic medication is intended for short-term use and will be provided for surgical pain. Surgical pain usually lasts for a period of 4-6 weeks. Narcotic medication includes Percocet, Vicodin, Darvocet, Tylenol #3 or Lortab. 2. Longer-term pain is more appropriately treated with non-narcotic medication such as Tylenol ES. 3. Muscle spasm is not appropriately treated with narcotics. Muscle relaxers such as Soma, Flexeril or Skelaxin can be used along with Tylenol ES. 4. Remember that we all live with some "aches and pains". This is not unusual or uncommon after an injury or as we get older. a. Back pain is expected and may include muscle spasms for 4 to 6 weeks after surgery. The pain should gradually improve. If the pain worsens for no apparent reason, please contact the office. b. Intermittent leg pain may also be experienced and should not be concerned about unless it worsens for no apparent reason. If so, please contact the office. 5. We will provide appropriate medication within the normal guidelines of their prescribed use. We will also be very cautious and aware of potential abuse and extended duration of patients' medication needs. a. Pain medications are for your comfort and to assist with sleep and rest so that the tissue can heal. They are not provided in order to return to normal activity and should not be used through the day. To do so or worsening pain at night can result from ongoing tissue damage and development of tolerance to the prescribed medicine. 6. Please allow 2-3 days to process refills. Prescriptions will not be mailed but must be picked up at the office. FOLLOW UP VISIT: Keep your scheduled follow-up appointment. Any questions, please call the office at . Pending Studies at Discharge: No Stand-Alone Forms: [facility], Smoking Cessation Medications and DC Order Prescriptions: New oxycodone 5 mg tablet 5 mg PO Q6H PRN (Reason: pain, severe) Qty: 30 0RF tramadol 50 mg tablet 50 mg PO Q6H PRN (Reason: pain, moderate) Qty: 30 0RF Continued acetaminophen [Tylenol Arthritis Pain] 650 mg tablet extended release 650 mg PO UD PRN (Reason: Pain) trazodone 50 mg Tablet 100 mg PO HS hydrochlorothiazide 25 mg Tablet 25 mg PO QAM diphenhydramine-acetaminophen [Tylenol PM Extra Strength] 25-500 mg Tablet 1 tab PO HS PRN (Reason: Sleep) Discharge Orders: Discharge Order (Routine); Ordered 01/21/22 Ordered By: Jaylon Whipple Admission Data Admit Date/Time: 01/19/22 11:34 Attending Provider: Jaylon Whipple Admit Provider: Jaylon Whipple Primary Care Provider: Sandi Carty
[2022-01-21] MEDS: dexAMETHasone 6 MG in SYRINGE 0 ML IV SCH (08:30)
[2022-01-21] MEDS: hydroCHLOROthiazide 25 MG TAB PO SCH (08:31)
== END 2022-01-21 13:08 | disposition home or self-care (01) | DRG 455 ==
LOC: ASU 08:19 → 3E 11:34

== ENCOUNTER 2024-07-13 10:42 | Observation (INO) ==
--- NOTE | 2024-06-06 14:12 | PAT Medication Instructions ---
Medication Instructions Date of Service June 06, 2024 Home Medications acetaminophen 650 mg tablet,extended release (Tylenol Arthritis Pain) 650 mg PO UD PRN Pain diphenhydramine 25 mg-acetaminophen 500 mg tablet (Tylenol PM Extra Strength) 1 tab PO HS PRN Sleep hydrochlorothiazide 25 mg tablet 25 mg PO QAM trazodone 50 mg tablet 100 mg PO HS multivitamin 1 tab PO QPM DO NOT take the morning of surgery hydrochlorothiazide 25 mg tablet 25 mg PO QAM Take morning of surgery With a small sip of water, OTHERWISE NOTHING TO EAT OR DRINK AFTER MIDNIGHT: acetaminophen 650 mg tablet,extended release (Tylenol Arthritis Pain) 650 mg PO UD PRN Pain (if needed) Take evening before surgery acetaminophen 650 mg tablet,extended release (Tylenol Arthritis Pain) 650 mg PO UD PRN Pain (if needed) diphenhydramine 25 mg-acetaminophen 500 mg tablet (Tylenol PM Extra Strength) 1 tab PO HS PRN Sleep (if needed) trazodone 50 mg tablet 100 mg PO HS multivitamin 1 tab PO QPM Other Notes If you have any questions please call us at [phone] or [phone] or [phone] or [phone]
--- NOTE | 2024-06-13 11:40 | Anesthesiology Consultation ---
Date of Service June 13, 2024 Assessment & Plan (1) Encounter for pre-operative examination: - awaiting surgeon ordered medical clearance, Dr. Hal Washington, [facility]. - Patient states she is seeing her dentist tomorrow for dental pain. She was instructed to contact surgeon's office with outcome of that visit as it may impact surgery. I also notified surgeon's office. Chart Review Chart Review: Acceptable Risk for Surgery (pending dental visit) and Patient seen in Pre Admission Testing Teaching & Discussion Pre-Anesthesia Teaching/Discussion Notes: Instructed NPO after midnight before surgery, except medications with 15 cc of water. Medication instructions provided according to the PAT guidelines. History Surgery Operation Date: 07/13/24 10:05 Proposed Procedures p L3-L4 Decompression, Exploration Fusion L4-L5, Fusion L3-L5, with Spinal Cord Monitoring - Jaylon Whipple, Height/Weight Height: 6 ft Weight: 99.79 kg Allergies Allergy/AdvReac Type Severity Reaction Status Date / Time adhesive AdvReac Mild Tape - Verified 06/06/24 12:17 skin burning oxycodone [From Percocet] AdvReac Mild Hallucination, Verified 06/08/24 09:31 GI upset Medications Home Medications Medication Instructions Recorded Confirmed Last Taken acetaminophen 650 mg 650 mg PO UD PRN Pain 02/07/19 06/06/24 01/18/22 08:00 tablet,extended release (Tylenol Arthritis Pain) diphenhydramine 25 1 tab PO HS PRN Sleep 12/25/21 06/06/24 01/18/22 21:30 mg-acetaminophen 500 mg tablet (Tylenol PM Extra Strength) hydrochlorothiazide 25 mg tablet 25 mg PO QAM 12/25/21 06/06/24 01/18/22 08:00 trazodone 50 mg tablet 100 mg PO HS 12/25/21 06/06/24 01/18/22 21:30 multivitamin 1 tab PO QPM 06/06/24 06/06/24 Unknown Past Medical History Medical History GERD (gastroesophageal reflux disease) controlled, stable per pt History of anesthesia reaction Slow to wake PONV "not requiring scop patch" HTN (hypertension) controlled, stable per pt DDD (degenerative disc disease) Spinal stenosis Chronic back pain MVP (mitral valve prolapse) "As teenager" No murmur appreciated on PAT exam 06/13/24 Patient denies h/o stroke, seizures, heart attack, heart failure, DM, blood clots/DVTs or blood transfusions. Exercise / Class Metabolic Activity II 4-5 Yardwork/Stairs/Walk up hill (denies chest discomfort or shortness of breath with one flight of stairs) Past Family History Family History Sister Family history of reaction to anesthesia n/v Mother Family history of reaction to anesthesia n/v Other Family history of diabetes mellitus in brother Past Surgical History Surgical History History of headache following lumbar puncture After hysterectomy, required blood patch History of hand surgery Right pinky finger reattached S/P transposition of nerve R/L ulnar History of spinal fusion 01/2022 + 05/2019 Family history of reaction to anesthesia Mother/sister - PONV Hx of colonoscopy Hx of esophagogastroduodenoscopy PONV (postoperative nausea and vomiting) Denies needing scop patch Hx of knee surgery left, manipulation in OR x2 History of cholecystectomy H/O: hysterectomy History of knee replacement Left TKA > revision History of PONV History of PONV and Hx of Motion Sickness Social History Smoking Status: Never smoker Do You Dip or Chew Tobacco: No Hx Alcohol Use: Yes alcohol intake frequency: holidays/special occasions only Hx Substance Use: No substance use type: does not use Review of Systems Patient denies chest pain, shortness of breath, dyspnea on exertion, snoring, witnessed apneas, reflux, fever, chills, cough, wheezing, or palpitations. Physical Exam Vital Signs Vitals BP 127/85 P 92 TEMP 98.4 SP02 98% on RA RESP 18 Physical Patient resting comfortably in chair in no acute distress, alert and oriented, responding appropriately throughout visit Full cervical extension range of motion without pain TMD 3.5 finger breadths Mallampati Score 2 Dentition: intact, denies chipped or loose teeth, caps/crowns, implants or bridges Lungs: normal respiratory effort. Good air movement, clear throughout to auscultation, no adventitious breath sounds Cardiac: regular rate and rhythm, no murmurs noted Carotid arteries: negative bruit bilat Lab Results Anesthesia Preop Results Results Anesthesia Widget: WBC 6.86 K/ul (4.8-10.8) 06/13/24 Hgb 15.8 g/dl (12.0-16.0) 06/13/24 Hct 44.9 % (37.0-47.0) 06/13/24 Plt 237 K/uL (130-400) 06/13/24 Na 140 mmol/L (136-145) 06/13/24 K 4.2 mmol/L (3.5-5.1) 06/13/24 Cl 103 mmol/L (98-107) 06/13/24 CO2 33 mmol/L (21-32) H 06/13/24 BUN 17 mg/dl (6-23) 06/13/24 Creat 1.04 mg/dl (0.6-1.2) 06/13/24 Glucose Level 85 mg/dl (70-99(Fasting)) 06/13/24 PT 10.4 Seconds (9.0-12.0) 06/13/24 PTT 25 Seconds (21-31) 06/13/24 INR 1.0 (0.9-1.1) 06/13/24 Urine Color Dark Yellow 06/13/24 Urine Appearance Clear (Clear) 06/13/24 Urine pH 5.5 (4.5-7.5) 06/13/24 Urine Specific [place] 1.042 (1.000-1.030) H 06/13/24 Urine Protein Trace (Negative) H 06/13/24 Urine Glucose (UA) Negative (Negative) 06/13/24 Urine Ketones 1+ (Negative) H 06/13/24 Urine Blood Negative (Negative) 06/13/24 Urine Nitrite Negative (Negative) 06/13/24 Urine Bilirubin Negative (Negative) 06/13/24 Urine Urobilinogen Negative (Negative) 06/13/24 Urine Leukocyte Esterase Trace (Negative) H 06/13/24 Urine WBC (Auto) 0-5 /hpf (0-5) 06/13/24 Urine RBC (Auto) 3-5 /hpf (0-2) H 06/13/24 Urine Hyaline Casts (Auto) 0-2 /lpf (0-2) 06/13/24 Urine Epithelial Cells (Auto) 6-10 /hpf (0-2) H 06/13/24 Urine Bacteria (Auto) None Seen (None Seen) 06/13/24 Blood Type B Positive 06/13/24 Antibody Screen NEGATIVE 06/13/24 Testing Laboratory Results Surgeon's office made aware of abnormal UA. Laboratory Tests 06/13/24 11:50 Hgb 15.8 Plt Count 237 Potassium 4.2 Creatinine 1.04 Electrocardiogram Date: 06/13/24 Findings: + NSR @ (81) Chest X-Ray Date: 06/13/24 No acute findings. Other Testing Head and neck CTA 10/23/19 No evidence of hemodynamically significant carotid or vertebral artery stenosis. No evidence of dissection. 1. No acute intracranial findings, on the noncontrast portion of the study. 2. Unremarkable CT angiography of the brain.
[2024-07-13] MEDS: GABAPENTIN 600 MG DOSE PO SCH (11:05)
[2024-07-13] MEDS: LR 15ML/HR IV SCH (11:06)
[2024-07-13] MEDS: ACETAMINOPHEN 500 MG TAB PO SCH (11:06)
[2024-07-13] MEDS: LR 60ML/HR IV SCH (11:06)
[2024-07-13] MEDS: CeleBREX 200 MG CAP PO SCH (11:06)
[2024-07-13] MEDS ORDERED: ONDANSETRON INJ 2 MG/ML 2 ML VIAL ONE ×2 (11:31→14:46)
[2024-07-13] MEDS ORDERED: LIDOCAINE 2% 2 ML VIAL/AMP(20MG/ML) INFIL ONE (11:31)
[2024-07-13] MEDS ORDERED: ROCURONIUM BROMIDE 10 MG/ML 5 ML VIAL IV ONE ×2 (11:31→13:51)
[2024-07-13] MEDS ORDERED: DEXAMETHASONE SOD INJ 4 MG/ML VIAL ONE (11:31)
[2024-07-13] MEDS ORDERED: PROPOFOL IV EMULSION 10 MG/ML 20 ML VIAL IV ONE ×3 (11:31→14:35)
[2024-07-13] MEDS ORDERED: ONDANSETRON INJ 2 MG/ML 2 ML VIAL IV PRN ×2 (11:53→16:24)
[2024-07-13] MEDS ORDERED: ePHEDrine sulfate 50 MG/ML AMP IV PRN (11:53)
[2024-07-13] MEDS ORDERED: ATROPINE SULFATE 0.1 MG/ML 10ML SYR IV PRN (11:53)
[2024-07-13] MEDS ORDERED: fentaNYL citrate PF 100 MCG/2 ML VIAL ONE ×2 (12:04→13:49)
[2024-07-13] MEDS ORDERED: MIDAZOLAM HCL 1 MG/ML 2ML VIAL ONE ×2 (12:04→13:26)
--- NOTE | 2024-07-13 12:34 | History & Physical Bridge Note ---
Date of Service July 13, 2024 History & Physical Bridge Note I have examined the patient, reviewed the History & Physical and in the interval since the performance of the History & Physical I have noted the following changes of clinical significance: no changes noted
--- NOTE | 2024-07-13 12:35 | History & Physical Report ---
Date of Service July 13, 2024 Assessment & Plan (1) Two-level lumbosacral spondylosis with radiculopathy: Plan: L3-L4 decompression, exploration of fusion L4-5 fusion L3-L5 History of Present Illness Chief Complaint: Back and leg pain Primary Care Provider: KAMRYN PCP This is a 50-year-old female known to me presents for chronic persistent back and leg pain after failing course of nonoperative care is here for surgical invention. Allergies Allergy/AdvReac Type Severity Reaction Status Date / Time adhesive AdvReac Mild Tape - Verified 07/13/24 11:00 skin burning oxycodone [From Percocet] AdvReac Mild Hallucination, Verified 07/13/24 11:00 GI upset Home Medications Medication Instructions Recorded Confirmed Type acetaminophen 650 mg 650 mg PO UD PRN Pain 02/07/19 07/13/24 History tablet,extended release (Tylenol Arthritis Pain) diphenhydramine 25 1 tab PO HS PRN Sleep 12/25/21 07/13/24 History mg-acetaminophen 500 mg tablet (Tylenol PM Extra Strength) hydrochlorothiazide 25 mg tablet 25 mg PO QAM 12/25/21 07/13/24 History trazodone 50 mg tablet 100 mg PO HS 12/25/21 07/13/24 History multivitamin 1 tab PO QPM 06/06/24 07/13/24 History Past Med/Surg History Problem List (Updated 07/13/24 @ 12:35 by Jaylon Whipple DO) Two-level lumbosacral spondylosis with radiculopathy Obesity Cervical radiculopathy at C6 Neurogenic claudication due to lumbar spinal stenosis Encounter for pre-operative examination Lumbar spinal stenosis Neurological deficit present Degenerative joint disease (DJD) of lumbar spine Medical History GERD (gastroesophageal reflux disease) controlled, stable per pt History of anesthesia reaction Slow to wake PONV "not requiring scop patch" HTN (hypertension) controlled, stable per pt DDD (degenerative disc disease) Spinal stenosis Chronic back pain MVP (mitral valve prolapse) "As teenager" No murmur appreciated on PAT exam 06/13/24 Surgical History History of headache following lumbar puncture After hysterectomy, required blood patch History of hand surgery Right pinky finger reattached S/P transposition of nerve R/L ulnar History of spinal fusion 01/2022 + 05/2019 Family history of reaction to anesthesia Mother/sister - PONV Hx of colonoscopy Hx of esophagogastroduodenoscopy PONV (postoperative nausea and vomiting) Denies needing scop patch Hx of knee surgery left, manipulation in OR x2 History of cholecystectomy H/O: hysterectomy History of knee replacement Left TKA > revision Family History Sister Family history of reaction to anesthesia n/v Mother Family history of reaction to anesthesia n/v Other Family history of diabetes mellitus in brother Social History Smoking Status: Never smoker Second Hand Exposure: No; Do You Dip or Chew Tobacco: No; Tobacco Cessation Education Requested by Patient: No Hx Alcohol Use: Yes Hx Substance Use: No Preferred Language: Hebrew Communication Ability: Effective Bilingual [employer] Retail Required: No Beliefs That Will Affect Care: None Current Living Situation: Spouse Other Information That Helps Us Care for You: No Feels Safe at Home: Yes Safety Concerns: Feels Safe At This Time Assistive Devices: Glasses Assistive Devices Comment: reading glasses Physical Exam Physical Exam: Patient is alert and oriented Heart regular in rhythm lungs clear Results & Data Results & Data Vital Signs (Past 12 Hours) Vital Signs Temp Pulse Resp BP Pulse Ox O2 Del Method 07/13/24 10:53 36.6 C 82 18 143/102 H 99 Room Air
[2024-07-13] MEDS ORDERED: SCOPOLAMINE 1 MG/72 HR TDSY PATCH TD ONE (13:20)
[2024-07-13] MEDS: ceFAZolin 2000MG 2,000 MG/15 ML SYR IV SCH ×2 (13:27→20:11)
[2024-07-13] MEDS: BUPIVACAINE/EPINEPHRINE 0.25% 1:200,000 30 ML VIAL ONE (14:38)
[2024-07-13] MEDS: ceFAZolin 330 MG/ML 1 GM VIAL ONE (14:38)
[2024-07-13] MEDS ORDERED: SUGAMMADEX SODIUM 200 MG/2 ML VIAL IV ONE (14:45)
[2024-07-13] MEDS: FLOSEAL HEMOSTATIC MATRIX 10ML TOP ONE (14:47)
--- NOTE | 2024-07-13 14:57 | Operative Report ---
Post Operative Report Pre & Post Diagnosis Operation Date: 07/13/24 11:55 Pre-Op Diagnosis: #1 lumbar spondylosis with radiculopathy #2 lumbar spinal stenosis with radiculopathy Post-Op Diagnosis: Same I identified the patient and participated in the time-out.: Yes Procedure Operation Date: 07/13/24 11:55 Actual Procedures #1 removal of posterior instrumentation L4-5. 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 #5 posterior spinal fusion L3-L4 #6 placement posterior instrumentation L3-L5 using camber. #7 interbody fusion L3-L4. #8 placement Spira 13 x 26 mm at L3- L4. #9 placement infuse collagen sponge, with Koros in the posterior lateral gutters and os design bone graft and by space. #10 application of pressure wrap of the exposed dura. Surgeon Jaylon Whipple, DO Manager Rehab Kaveh Underwood Estimated Blood Loss 100 Findings Consistent with Post-Op Diagnosis Specimens None Indications This is a 58-year-old female who presents publish diagnosis of failing course of nonoperative care is here for surgical invention. Description of Procedure Patient was met with identified informed consent obtained. Patient was then taken to the operative suite underwent the patient placed in a prone position on the Richy table atop the Jaguar frame. All bony prominences well-padded eyes inspected to ensure no external pressure placed upon them. This point the lumbar spine was prepped and draped in normal gel fashion. Sharp dissection with the assistance of Bovie cautery was performed down to and exposing the lamina transverse processes of L3 and instrumentation L4-5 bilaterally. I then proceeded to move the hardware bilaterally. I explored the fusion mass noted to be mature and intact bilaterally. Then performed a complete laminectomy of L3 with bilateral medial facetectomies and foraminotomies addressing severe spondylosis. This included excision of extradural mass on the left with a large facet cyst beginning the canal working through the foramen and extraforaminal region. After complete decompression pedicle screws were placed at L3-L4-L5 with the assistance of fluoroscopy and the probe was placed. Bilateral transforaminal approach on the left complete discectomy of L3-L4 was performed endplates corrected to subcortical of the bone and a 13 x 26 mm spiral cage filled with os design bone graft after position. The rods were then compressed locked into final position bilaterally. The transverse processes of L3-L4 burred to subcortical and bone. Infuse collagen sponge bath Koros and local autograft placement posterior gutters. First wrap placed of the exposed dura. 15 round DALLAS drain inserted. The incision was then closed with 1 Vicryl the fascia 2-0 Vicryl subcutaneously and 4 Monocryl for final skin closure. Steri- Strips sterile dressing placed. Patient waken taken the PACU stable condition. Please note Kaveh record was present at the entire procedure and on the patient positioning complex portion of the surgery and final skin closure. I attest to the content of the Intraoperative Record and any orders documented therein. Any exceptions are noted below.
--- NOTE | 2024-07-13 15:10 | Fluoroscopy Report ---
FL lumbar spine 2-3V CLINICAL HISTORY: L3-L4 DECOMP,L4-L5 EXPLORATION FUSION,L3-L5 FUSION COMPARISON STUDY: None FLUOROSCOPY TIME: 10 seconds FLUOROSCOPY IMAGES: 3 EXPOSURE DOSE: 7 mGy FINDINGS: Fluoroscopy was provided for lumbar surgery. IMPRESSION: Intraoperative fluoroscopy. ACT 112: Negative or not required by law. Electronically signed by: Burke Hill M.D. 07/13/2024 3:09 PM
[2024-07-13] MEDS: fentaNYL citrate PF 100 MCG/2 ML VIAL IV PRN (15:25)
[2024-07-13] MEDS: HYDROmorphone INJ 0.5 MG/0.5 ML SYR IV STA (15:50)
--- NOTE | 2024-07-13 16:13 | Anesthesiology Progress Note ---
Date of Service July 13, 2024 Anesthesia Post Procedure Vital Signs Vital Signs: Temp Pulse Pulse Resp BP Pulse Ox O2 Del Method 07/13/24 16:05 76 12 132/64 94 Room Air 07/13/24 15:55 36.5 C 78 14 104/85 97 Room Air 07/13/24 15:45 77 16 154/84 H 97 Room Air 07/13/24 15:35 73 14 153/98 H 97 Room Air 07/13/24 15:25 80 14 113/75 95 Room Air 07/13/24 15:19 36 C L 84 16 147/75 H 95 Room Air 07/13/24 10:53 36.6 C 82 18 143/102 H 99 Room Air Pain Intensity Back: Pain Intensity: 6 Transfer of Care Handoff Completed per policy Notes Mental Status: alert / awake / arousable Patient Amnestic to Procedure: Yes Nausea / Vomiting: adequately controlled Pain: adequately controlled Airway Patency, RR, SpO2: stable & adequate BP & HR: stable & adequate Hydration State: stable & adequate Anesthetic Complications: no major complications apparent
[2024-07-13] MEDS ORDERED: traMADol HCL 50 MG TABLET PO PRN (16:24)
[2024-07-13] MEDS ORDERED: HYDROmorphone INJ 0.5 MG/0.5 ML SYR IV PRN (16:24)
[2024-07-13] MEDS ORDERED: MAGNESIUM HYDROXIDE SUSP 30 ML UDC PO PRN (16:24)
[2024-07-13] MEDS ORDERED: HYDROmorphone INJ 1 MG/ML SYRINGE IV PRN (16:24)
[2024-07-13] MEDS ORDERED: NALOXONE HCL 0.4 MG/1 ML VIAL/CARP IV PRN (16:24)
[2024-07-13] MEDS ORDERED: LORazepam 0.5 MG TAB PO PRN (16:24)
[2024-07-13] MEDS ORDERED: PROMETHAZINE 12.5 MG/50.5 ML BAG IV PRN (16:24)
[2024-07-13] MEDS ORDERED: bisacodyL 10 MG SUPP PR PRN (16:24)
[2024-07-13] MEDS ORDERED: METOCLOPRAMIDE HCL INJ 5 MG/ML 2 ML VIAL IV PRN (16:24)
[2024-07-13] MEDS ORDERED: diphenhydrAMINE Capsule 25 MG CAP PO PRN (16:24)
[2024-07-13] MEDS ORDERED: hydrOXYzine HCl 25 MG TAB PO PRN (16:24)
[2024-07-13] MEDS ORDERED: ALUMINUM/MAGNESIUM SUSP 30 ML UDC PO PRN (16:24)
[2024-07-13] MEDS ORDERED: SOD PHOSPHATE/SOD BIPHOSPHATE ENEMA 132 ML BTL PR PRN (16:24)
[2024-07-13] MEDS ORDERED: DO NOT ADMINISTER PNEUMOCOCCAL VACCINE PRN (16:24)
[2024-07-13] MEDS ORDERED: DO NOT ADMINISTER FLU VACCINE PRN (16:24)
[2024-07-13] MEDS ORDERED: FAMOTIDINE 20 MG TAB PO PRN (16:24)
[2024-07-13] MEDS ORDERED: ACETAMINOPHEN 500 MG TAB PO PRN (16:24)
[2024-07-13] MEDS ORDERED: ACETAMINOPHEN 1,000 MG/100 ML VIAL IV PRN (16:24)
[2024-07-13] MEDS ORDERED: ONDANSETRON 4 MG OD TAB PO PRN (16:24)
[2024-07-13] MEDS ORDERED: LORazepam 2 MG/1 ML VIAL IV PRN (16:24)
[2024-07-13] MEDS: HYDROCODONE/ACETAMOPHEN 5/325MG TAB PO PRN (16:41)
[2024-07-13] MEDS: HYDROmorphone INJ 0.5 MG/0.5 ML SYR ONE (16:58)
[2024-07-13] MEDS: LACTATED RINGER'S 1,000 ML IV SCH (17:05)
[2024-07-13] MEDS: DOCUSATE SODIUM/SENNA 50/8.6MG TAB PO SCH (20:11)
[2024-07-13] MEDS: traZODone HCL 100 MG TAB PO SCH (20:11)
[2024-07-14] MEDS: KETOROLAC 30 MG/ML VIAL IV PRN (05:53)
[2024-07-14] MEDS: POLYETHYLENE (MIRALAX) 17 GM PACK PO SCH (06:01)
[2024-07-14 06:03] LABS: Basophils # (auto) 0.03 K/uL (0.00-0.20); Basophils % (auto) 0.2 %; Eosinophils # (auto) 0.01 K/uL (0.00-0.50); Eosinophils % (auto) 0.1 %; Hematocrit (blood only) 34.8 % (37.0-47.0); Hemoglobin 12.4 g/dl (12.0-16.0); Immature Granulocytes # (auto) 0.03 K/uL (0.01-0.20); Immature Granulocytes % (auto) 0.2 %; Lymphocytes # (auto) 1.23 K/uL (1.20-3.40); Lymphocytes % (auto) 9.9 %; Mean Corpuscular Hemoglobin 32.1 pg (25.0-34.0); Mean Corpuscular Hgb Conc 35.6 g/dL (32.0-36.0); Mean Corpuscular Volume 90.2 fL (80.0-100.0); Monocytes # (auto) 0.67 K/uL (0.11-0.59); Monocytes % (auto) 5.4 %; Neutrophils # (auto) 10.44 K/uL (1.40-6.50); Neutrophils % (auto) 84.2 %; Platelet Count 192 K/uL (130-400); RDW Coefficient of Variation 11.4 % (11.5-14.5); RDW Standard Deviation 37.3 fL (36.4-46.3); Red Blood Count 3.86 M/uL (4.20-5.40); White Blood Count 12.41 K/ul (4.8-10.8)
[2024-07-14 06:19] LABS: BUN Creatinine Ratio 14.6 (10-20); Calcium 9.2 mg/dl (8.6-10.3); Creatinine Clr Calc Pharmacy 79.3 ml/min; Potassium 4.5 mmol/L (3.5-5.1)
--- NOTE | 2024-07-14 08:13 | Orthopedic Progress Note ---
Date of Service July 14, 2024 Assessment & Plan (1) Two-level lumbosacral spondylosis with radiculopathy: Plan: Patient is stable postoperative #1. Will continue with GI DVT prophylaxis and pain control measures. She will ambulate throughout the day. For drainage slows down and her pain remains well-controlled she may be discharged home tomorrow. Admission and Anticipated Discharge Date Admission Date: July 13, 2024 Subjective Patient was seen bedside in room 304. She had significant postoperative pain but the pain medication has been working. She had some Toradol last night which helped with the pain as well. Pain is mostly the back itself. The left leg pain that she had prior to surgery has subsided she has some mild tingling in the thigh. She has been up and walking. She is not nauseous. She is tolerating p.o. She denies any other numbness, tingling, or paresthesias. Physical Exam Physical Exam: On exam she is alert and oriented. She stands and moves around the room easily. Her dressing is clean dry and intact. Her DALLAS drain is in place and is pulled out 95 cc of drainage in the last shift. Her abdomen soft and nontender calves are supple and nontender. Cardiovascular exam reveals no gross abnormalities. Results & Data Vital Signs (Past 12 Hours) Vital Signs Temp Pulse Resp BP Pulse Ox O2 Del Method 07/14/24 07:07 36.5 C 67 16 109/71 97 Room Air 07/14/24 03:01 36.7 C 66 18 96/61 L 94 Room Air 07/13/24 23:00 36.9 C 82 18 109/73 94 Room Air
[2024-07-14] MEDS: hydroCHLOROthiazide 25 MG TAB PO SCH (08:54)
[2024-07-14] MEDS: dexAMETHasone 6 MG in SYRINGE 0 ML IV SCH (08:54)
[2024-07-14 19:22] VITALS: TEMP 97.9
[2024-07-15 07:30] VITALS: BP 132/79; PULSE 60; RESP 16; O2SAT 98
--- NOTE | 2024-07-15 07:39 | Discharge Summary ---
Date of Service July 15, 2024 Admission HPI Per Admitting Provider This is a 50-year-old female known to me presents for chronic persistent back and leg pain after failing course of nonoperative care is here for surgical invention. Discharge Data Procedures Performed Operation Date: 07/13/24 11:55 Actual Procedures p L3-L4 Decompression, L4-L5 Exploration Fusion, L3-L5 Fusion, Spinal Cord Monitoring(Not Applicable) - Jaylon Whipple DO [facility] Course (1) Two-level lumbosacral spondylosis with radiculopathy: Patient is a pleasant 50-year-old female with history physical examination radiographic images consistent with the above-mentioned diagnosis. For this reason she was brought to the operating room on 07/13/2024 and undergone a removal of hardware lumbar decompression and continuation of fusion from L3-L5. This was performed by Dr. Whipple under general anesthesia. She left the operating room with a DALLAS drain in place and was transferred to PACU in stable condition. She was then transferred to the orthopedic floor. She was seen by physical therapy postop day #1 for ambulation and gait training. Throughout her hospital course her calves remain supple and nontender abdomen remains soft and nontender 07/15/2024 the patient was deemed safe for home discharge. Her discharge instructions were to change her dressing once daily till there is no drainage once there is no drainage she may shower. She may utilize [place] as well as Tylenol for pain control to keep the Tylenol dosage less than 3000 mg daily. She should not lift anything heavier than 5 to 7 pounds. She is to be seen in the office approximately 2 weeks out from her surgery or sooner if she develops any increasing pain, drainage from the incision, or worsening leg pain.
== END 2024-07-15 11:21 | disposition home or self-care (01) | DRG 402 ==
LOC: ASU 10:42 → INTOOBSV 15:00 → 3E 15:00